=== PATIENT | female | born 1940 | race Caucasian/White ===

== ENCOUNTER 2019-05-23 14:42 | Emergency (ER) | payer MEDICARE ==
[~2019-05-23] VITALS: Ht 144.8 cm; Wt 40.8 kg
--- OUTSIDE RECORDS SUMMARY | 2019-05-23 14:45 | XMS REPORT | Clinical Summary ---
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 Active cholecalciferol, vitamin Take 2,000 0 D3, (VITAMIN D3) 2,000 Units by unit capsule capsule mouth daily as needed. Active cyanocobalamin (VITAMIN Take 500 mcg 0 B-12) 500 MCG tablet by mouth daily. Active Problems Problem Noted Date Anemia 05/26/2018 Age related osteoporosis 05/26/2018 Moderate protein-calorie malnutrition 02/21/2018 Hip fracture 02/17/2018 Closed displaced articular fracture of head of right femur 02/17/2018 Closed fracture of neck of right femur 02/17/2018 Overview: Added automatically from request for surgery [id number] Encounters Care Team Description Date Type Specialty Mounika Simeon MD 05/11/2019 Telephone Internal Medicine Justus Quiroga MD Age related osteoporosis, unspecified pathological fracture presence (Primary Dx); Anemia, unspecified type 05/04/2019 Office Visit Oncology Mounika Simeon MD Encounter for routine adult health examination with abnormal findings (Primary Dx); Parkinson disease (HCC); Anemia, unspecified type; At high risk for falls; Hypoglycemia; Dysuria; Bone disorder; 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; Other depression; Immunization refused 05/03/2019 Office Visit Internal Medicine Essie Ron 05/03/2019 Patient Quality Outreach Kristen Javier MA 06/25/2018 Telephone Internal Medicine Kristen Javier MA 06/19/2018 Telephone Internal Medicine Justus Quiroga MD Closed fracture of right hip with routine healing, subsequent encounter (Primary Dx); Anemia, unspecified type; Age related osteoporosis, unspecified pathological fracture presence 05/26/2018 Office Visit Oncology Aston Lai RN Anemia, unspecified type (Primary Dx) 05/26/2018 Orders Only Oncology after 05/22/2018 Family History Medical History Relation Name Comments Throat cancer Father Brain cancer Mother Osteoarthritis Mother Aneurysm Sister Arthritis Sister Osteoporosis Sister Relation Name Status Comments Father suicide Mother Sister (Age 65) Sister Alive multiple problems Social History Date Tobacco Use Types Packs/Day Years Used Never Smoker Smokeless Tobacco: Never Used Alcohol Use Drinks/Week oz/Week Comments No Sex Assigned at Date Recorded Not on file Industry Job Start Date Occupation Not on file Not on file Not on file Travel End Travel History Travel Start No recent travel history available. Last Filed Vital Signs Time Taken Vital Sign Reading 05/04/2019 1:32 PM CDT Blood Pressure 126/56 05/04/2019 1:32 PM CDT Pulse 91 05/04/2019 1:32 PM CDT Temperature 36 C (96.8 F) 05/03/2019 2:09 PM CDT Respiratory Rate 16 05/03/2019 2:09 PM CDT Oxygen Saturation 99% - Inhaled Oxygen - Concentration 05/04/2019 1:32 PM CDT Weight 41.7 kg (92 lb) 05/04/2019 1:32 PM CDT Height 144.8 cm (4' 9") 05/04/2019 1:32 PM CDT Body Mass Index 19.91 Plan of Treatment Care Team Description Date [place] [address] [facility] [address] [place] [address] [phone] 05/02/2020 Office Visit Oncology Health Maintenance Due Date Last Done Comments SHINGLES VACCINES (#1) 1990 65+ PNEUMOCOCCAL VACCINE 2005 (1 of 2 - PCV13) INFLUENZA VACCINE 07/01/2019 Implants Device Identifier Shelf Expiration Date Model / Serial / Lot Implanted Type Area Manufactur er 09/29/2025 [id number] / / [id number] Component Modlr Neck Neut Ti Shrt Hip Joint Right: Hip MICROPORT Profemur - [id number] Implants Implanted: Qty: 1 on 02/20/2018 by John Sarabia Jr., MD 07/22/2025 [id number] / / [id number] Head Fml Mtl Co-Cr 28mm -3.5mm Hip Joint Lower: Hip MICROPORT Lineage - [id number] Implants Implanted: Qty: 1 on 02/20/2018 by John Sarabia Jr., MD 02/03/[id number] / / [id number] Schanz Screw Self Drill 5mm St - IPM Right: Hip MICR[employer]ORT [id number] IMPLANT ORTHOPEDIC Implanted: Qty: 1 on 02/20/2018 by DEVICES John Smalls Jr., MD 05/14/2024 [id number] / / [id number] Gladiator Bipolar Shell 42mm Od X IPM Right: Hip MICROPORT 28mm Id - [id number] IMPLANT ORTHOPEDIC Implanted: Qty: 1 on 02/20/2018 by DEVICES John Smalls Jr., MD 02/03/[id number] / / [id number] Schanz Screw Self Drill 5mm St - IPM Right: Hip MICROPORT [id number] IMPLANT ORTHOPEDIC Implanted: Qty: 1 on 02/20/2018 by DEVICES John Smalls Jr., MD 02/07/2025 [id number] / / [id number] Profemur Renaissancestem Reduced Sz IPM Right: Hip MICROPORT 10 - [id number] IMPLANT ORTHOPEDIC Implanted: Qty: 1 on 02/20/2018 by John Lantigua Jr., MD 09/10/[id number] / / [id number] Pin Steinmenn Strl - [id number] Temporary Right: Hip MICROPORT Implanted: Qty: 1 on 02/20/2018 by Fixation John Sarabia Jr., MD Pin or Wire Procedures Comments Procedure Name Priority Date/Time Associated Diagnosis URINALYSIS, AUTOMATED Routine 05/12/2019 Dysuria WITH MICROSCOPY 2:13 PM CDT URINE CULTURE Routine 05/12/2019 Dysuria 2:13 PM CDT INSULIN, RANDOM Routine 05/04/2019 8:22 AM CDT VITAMIN B12 LEVEL Routine 05/04/2019 Other care home (current) 8:22 AM CDT drug therapy VITAMIN D 25 HYDROXY Routine 05/04/2019 Bone disorder LEVEL 8:22 AM CDT COMPREHENSIVE METABOLIC Routine 05/04/2019 Anemia, unspecified type PANEL 8:22 AM CDT CBC WITH PLATELET AND Routine 05/04/2019 Anemia, unspecified type DIFFERENTIAL 8:22 AM CDT POC GLYCOSYLATED Routine 05/03/2019 Hypoglycemia HEMOGLOBIN (HGB A1C) 3:22 PM CDT ZZESTIMATED GFR STAT 05/26/2018 10:46 AM CDT COMPREHENSIVE METABOLIC STAT 05/26/2018 Anemia, unspecified type PANEL 10:46 AM CDT HC COMPLETE BLD COUNT STAT 05/26/2018 Anemia, unspecified type W/AUTO DIFF 10:46 AM CDT after 05/22/2018 Results * Urinalysis, automated with microscopy (05/12/2019 2:13 PM CDT) Color, UA YELLOW YELLOW [facility] [place] Appearance CLEAR CLEAR [facility] [place] Specific 1.021 1.001 - 1.035 [facility] gravity, urine [facility] [place] pH, urine < OR=5.0 5.0 - 8.0 [facility] [place] Glucose, urine NEGATIVE NEGATIVE [facility] [place] Bilirubin, UA NEGATIVE NEGATIVE [facility] [place] Ketones, UA NEGATIVE NEGATIVE [facility] [place] Occult blood, NEGATIVE NEGATIVE [facility] [place] Protein, UA NEGATIVE NEGATIVE [facility] [place] Nitrite, UA NEGATIVE NEGATIVE [facility] [place] Leukocyte NEGATIVE NEGATIVE [facility] esterase, UA [facility] [place] WBC, UA 0-5 < OR=5 /HPF [facility] [place] RBC, UA NONE SEEN < OR=2 /HPF [facility] [place] Squamous NONE SEEN < OR=5 /HPF [facility] epithelial DIAGNOSTICS cells, UA [place] Bacteria, UA NONE SEEN NONE SEEN /HPF [facility]AGNOSTICS [place] Hyaline casts, NONE SEEN NONE SEEN /LPF [facility] UA [facility] [place] Specimen Urine Narrative Performed At [facility] 05/04/2019 FROM [id number] [facility] Resulting Agency Comment Performing Organization Information: Site ID: [id number] Name: [email or web address] Address: [address] [place] [phone] Director: Moraima Peguero Performing Organization Address [facility] Centercode Phone Number [facility] [place] [address] * Urine culture (05/12/2019 2:13 PM CDT) Urine culture SEE NOTE [facility] Comment: DIAGNOSTICS CULTURE, URINE, ROUTINE [place] MICRO NUMBER:[id number] TEST STATUS: FINAL SPECIMEN SOURCE: URINE SPECIMEN QUALITY:ADEQUATE RESULT: Multiple organisms present, each less than 10,000 CFU/mL. These organisms, commonly found on external and internal genitalia, are considered to be colonizers. No further testing performed. Specimen Urine Narrative Performed At [facility] 05/04/2019 FROM [id number] [facility] Resulting Agency Comment Performing Organization Information: Site ID: RGA Name: [email or web address] Address: [address] [place] [phone] Director: Moraima Peguero Performing Organization Address [facility] Phone Number [facility] [place] [address] * Insulin, random (05/04/2019 8:22 AM CDT) Insulin 4.9 2.0 - 19.6 uIU/mL [facility] Comment: DIAGNOSTICS-IRIS This insulin assay shows ING II strong cross-reactivity for some insulin analogs (lispro, aspart, and glargine) and much lower cross-reactivity with others (detemir, glulisine). Specimen Narrative Performed At PATIENT UNABLE TO VOID; ADVISED TO RETURN FOR COLLECTION. [facility] Resulting Agency Comment Performing Organization Information: Site ID: [email or web address] Name: [email or web address] Address: [address] [place] [phone] Director: Dr. Maurice Saxena Performing Organization Address [facility] Centercode Phone Number [facility] [employer] [place], [place] [id number] II * Vitamin D 25 hydroxy level (05/04/2019 8:22 AM CDT) Pathologist [facility] Vitamin D, 26 (L) 30 - 100 ng/mL [facility] 25-hydroxy Comment: DIAGNOSTICS Vitamin D [place] Status 25-OH Vitamin D: Deficiency: <20 ng/mL Insufficiency: 20 - 29 ng/mL Optimal: > or=30 ng/mL For 25-OH Vitamin D testing on patients on D2-supplementation and patients for whom quantitation of D2 and D3 fractions is required, the QuestAssureD(TM) 25-OH VIT D, (D2,D3), LC/MS/MS is recommended: order code 67018 (patients >2yrs). For more information on this test, go to: http://education.365net/faq/LTJ763 (This link is being provided for informational/educational purposes only.) Specimen Blood Narrative Performed At PATIENT UNABLE TO VOID; ADVISED TO RETURN FOR COLLECTION. [facility] Resulting Agency Comment Performing Organization Information: Site ID: RGA Name: [email or web address] Address: [address] [place] [phone] Director: Moraima Peguero Performing Organization Address City/State/Zipcode Phone Number [employer] [address] [address] * CBC with platelet and differential (05/04/2019 8:22 AM CDT) Only the most recent of 2 results within the time period is included. [facility] WBC 4.3 3.8 - 10.8 [facility] Thousand/uL [employer] [place] RBC 3.66 (L) 3.80 - 5.10 [facility] Million/uL [employer] [place] HGB 11.2 (L) 11.7 - 15.5 g/dL [employer] [facility] HCT 33.6 (L) 35.0 - 45.0 % [employer] [place] MCV 91.8 80.0 - 100.0 fL [employer] [facility] MCH 30.6 27.0 - 33.0 pg [employer] [place] MCHC 33.3 32.0 - 36.0 g/dL [facility] RDW 13.5 11.0 - 15.0 % [facility] Platelet count 212 140 - 400 [facility] Thousand/uL [facility] MPV 11.5 7.5 - 12.5 fL [employer] [facility] Neutrophils, 2,468 1,500 - 7,800 [facility] absolute cells/uL [facility] Lymphocytes, 1,324 850 - 3,900 cells/uL [facility] absolute [facility]ICS [place] Monocytes, 409 200 - 950 cells/uL [facility] absolute [facility] [place] Eosinophils, 69 15 - 500 cells/uL [facility] absolute [facility] [place] Basophils, 30 0 - 200 cells/uL [facility] absolute [facility] [place] Neutrophils 57.4 % [facility] Lymphocytes 30.8 % [employer] [facility] Monocytes 9.5 % [facility] Eosinophils 1.6 % [facility] Basophils + RC 0.7 % [employer] [facility] Specimen Blood Narrative Performed At PATIENT UNABLE TO VOID; ADVISED TO RETURN FOR COLLECTION. [facility] Resulting Agency Comment Performing Organization Information: Site ID: Deniz Name: [employer] [facility] Address: [address] [place] [phone] Director: Moraima Peguero Performing Organization Address City/State/[facility] Centercode Phone Number [facility] [place] [address] * Vitamin B12 level (05/04/2019 8:22 AM CDT) Pathologist [facility] Vitamin B12 >2000 (H) 200 - 1100 pg/mL [facility] Specimen Blood Narrative Performed At PATIENT UNABLE TO VOID; ADVISED TO RETURN FOR COLLECTION. [facility] Resulting Agency Comment Performing Organization Information: Site ID: Deniz Name: [employer] [facility] Address: [address] [place] [phone] Director: Moraima Peguero Performing Organization Address [facility] Centercode Phone Number [facility] [place] [place] [address] * Comprehensive metabolic panel (05/04/2019 8:22 AM CDT) Only the most recent of 2 results within the time period is included. Glucose 85 65 - 99 mg/dL [facility] Comment: DIAGNOSTICS Fasting [place] reference interval BUN, whole 24 7 - 25 mg/dL [facility] blood [facility] Creatinine 0.67 0.60 - 0.93 mg/dL [facility] Comment: DIAGNOSTICS For patients >49 years of age, [place] the reference limit for Creatinine is approximately 13% higher for people identified as -Ugandan. EGFR Non-Afr. 84 > OR=60 [facility] [place] mL/min/1.73m2 [facility] EGFR 98 > OR=[address] [facility] Ugandan mL/min/1.73m2 [facility] [place] BUN/creatinine NOT APPLICABLE 6 - 22 (calc) [facility] ratio [facility] [place] Sodium 139 135 - 146 mmol/L [facility] [place] Potassium 4.3 3.5 - 5.3 mmol/L [facility] [place] Chloride 103 98 - 110 mmol/L [facility] [place] CO2 29 20 - 32 mmol/L [facility] [place] Calcium 9.2 8.6 - 10.4 mg/dL [facility] [place] Protein 6.6 6.1 - 8.1 g/dL [facility] Albumin, S 4.1 3.6 - 5.1 g/dL [facility] [place] Globulin, total 2.5 1.9 - 3.7 g/dL [facility] (calc) [facility] Albumin/globuli 1.6 1.0 - 2.5 (calc) [facility] n ratio [facility] Total bilirubin 0.5 0.2 - 1.2 mg/dL [facility] [place] Alkaline 62 33 - 130 U/L [employer] phosphatase [facility] AST 15 10 - 35 U/L [facility] [place] ALT 10 6 - 29 U/L [employer] [place] Specimen Blood Narrative Performed At PATIENT UNABLE TO VOID; ADVISED TO RETURN FOR COLLECTION. [employer] Resulting Agency Comment Performing Organization Information: Site ID: RGA Name: [email or web address] Address: [address] [place] [phone] Director: Moraima Peguero Performing Organization Address City/State/Zipcode Phone Number [facility] [address] [place] [address] * POC glycosylated hemoglobin (Hb A1C) (05/03/2019 3:22 PM CDT) Pathologist [facility] POC Hemoglobin 5.4 % A1C Specimen Blood * Estimated GFR (05/26/2018 10:46 AM CDT) GFR Non Af Amer 81 mL/min/1.73 m2 [facility] DEPARTMENT OF PATHOLOGY AND GENOMIC MEDICINE GFR Af Amer >90 mL/min/1.73 m2 [facility] Comment: DEPARTMENT OF Chronic kidney disease: <60 PATHOLOGY AND mL/min/1.73m2 GENOMIC Kidney failure: <15 MEDICINE mL/min/1.73m2 The estimated GFR is calculated from the IDMS-traceable Modification of Diet in Renal Disease Equation. The accuracy of the calculation is poor when the creatinine is normal. Calculated values >90 mL/min/1.73m2 are not reported. This equation has not been validated in children (<18 years), women, the elderly (>70 years), or ethnic groups other than Caucasians and Americans. Specimen Plasma specimen Performing Organization Address City/State/Zipcode Phone Number [facility] [id number] [place] [address] [place] [address] PATHOLOGY AND GENOMIC MEDICINE after 05/22/2018 Insurance Type Payer Benefit Subscriber ID Effective Phone Address Plan / Dates Group Medicare MEDICARE MEDICARE xxxxxxxxxx 2005- JUAN, PART A AND Present [place] B Commercial AARP AAR xxxxxxxxxxx [id number] SUPPLEMENT resent Advance Directives Patient has advance care planning documents, and code status on file. For more i nformation, please contact: Juan Laguerre [address] [place] [address] Date Inactivated Comments Code Status Date Activated 02/24/2018 11:25 PM Full Code 02/17/2018 9:04 PM Code Status decision reached by: Patient
--- OUTSIDE RECORDS SUMMARY | 2019-05-23 14:46 | XMS REPORT | Continuity of Care Document ---
Author Author Yessi fito [facility] Interface Address Unknown Phone Unavailable Problems Problem Status Onset Date Classification Date Reported Comments Source Medications Medication Details Route Status Patient Instructions Ordering Provider Order Date Source Allergies, Adverse Reactions, Alerts Substance Category Reaction Severity Reaction type Status Date Reported Comments Source Immunizations Immunization Date Given Site Status Last Updated Comments Source Results Order Name Results Value Reference Range Date Interpretation Comments Source Brain wo contrast CT Brain wo contrast CT Exam: CT scan of the brain without contrast Reason for Exam: I62. Other and unspecified nontraumatic intracranial hemorrhage - I62. Other and unspecified nontraumatic intracranial hemorrhage Comparison Exam: None Technique: Multiple axial images were obtained of the brain. 5 mm slices were acquired without injection of intravenous contrast. Reformatted sagittal and coronal images were obtained for additional diagnostic information. Total exam CRP=0199 mGy-cm. This exam was performed according to our departmental dose- optimization program, which includes automated exposure control, adjustment of the MA and/or KV according to patient size and/or use of iterative reconstruction technique. Discussion: No abnormal fluid collections, space-occupying lesions, hydrocephalus, or midline shift. No evidence seen for acute cortical-based ischemic infarct or intra-axial/extra-axial hematoma. Age related involutional changes are seen, associated with compensatory hypertrophy of the ventricles. Mild periventricular white matter ischemic changes are seen. No skull fractures identified. The orbits are unremarkable. The visualized portions of the paranasal sinuses are clear. Impression: 1. No acute intracranial abnormalities appreciated. No skull fractures identified. 07/15/2017 - - Read by: Jose Frausto MD Dictated Date/time: 07/15/17 12:28 Electronically Signed by: Jose Frausto MD 07/15/17 12:32 FINAL [facility]PORT [facility] Vital Signs Vital Sign Value Date Comments Source Encounters Location Location Details Encounter Type Encounter Number Reason For Visit Attending Provider ADM Date DC Date Status Source [facility] Services [id number] Carol Friday07/15/2017 07/16/2017 YANNI Amaro Procedures Procedure Code Date Perfomer Comments Source
--- OUTSIDE RECORDS SUMMARY | 2019-05-23 14:46 | XMS REPORT | Summary of Care ---
Author Author [facility] [place] Organization [facility] [place] Address Unknown Phone Unavailable Encounter HQ Encntr_[id number](FIN) [id number] Date(s): 07/15/17 - 07/15/17 [facility] [place] [address] [place] [address]- [phone] Discharge Disposition: Home or Self Care Attending Physician: FridayCarol MD Vital Signs No data available for this section Problem List No data available for this section Allergies, Adverse Reactions, Alerts No data available for this section Medications No data available for this section Results No data available for this section Immunizations No data available for this section Procedures No data available for this section Social History No data available for this section Assessment and Plan No data available for this section
[2019-05-23] MEDS ORDERED: SODIUM CHLORIDE 0.9% 500ML 500 ML IV STA (15:59)
[2019-05-23] MEDS ORDERED: ONDANSETRON HCL INJ 2MG/ML 2ML 2 MG/ML VIAL IV ONE (16:30)
[2019-05-23] MEDS ORDERED: FAMOTIDINE 20 MG/2 ML VIAL IV ONE (16:30)
--- NOTE | 2019-05-23 16:44 | Diagnostic Imaging Report ---
EXAMINATION: CT of the abdomen and pelvis without contrast. TECHNIQUE: Spiral CT images of the abdomen and pelvis were performed from the lung bases to the lesser trochanters. No intravenous contrast was given due to history of iodine allergy. Coronal and sagittal reformatted images were obtained. COMPARISON: None. CLINICAL HISTORY:Stomach noises, loss of appetite DISCUSSION: ABSENCE OF INTRAVENOUS CONTRAST DECREASES SENSITIVITY FOR DETECTION OF FOCAL LESIONS AND VASCULAR PATHOLOGY. ABDOMEN/PELVIS: LOWER THORAX: Linear subsegmental atelectasis versus scarring in the right lower lobe and anterior left lower lobe. HEPATOBILIARY: No focal hepatic lesions. No intra or extrahepatic biliary ductal dilation. GALLBLADDER: No radio-opaque stones or sludge. No wall thickening. SPLEEN: No splenomegaly. PANCREAS: No focal masses or ductal dilatation. ADRENALS: No adrenal nodules. KIDNEYS/URETERS: No hydronephrosis, stones, or contour abnormalities. PELVIC ORGANS/BLADDER: Evaluation of the pelvis is limited by beam hardening artifact from right hip prosthesis. Visualized bladder is unremarkable. PERITONEUM/RETROPERITONEUM: No free air or fluid. LYMPH NODES: No intra-abdominal,retroperitoneal, pelvic or inguinal lymphadenopathy. VESSELS: Atherosclerotic calcification of the abdominal aorta GI TRACT: . No bowel dilation or evidence of obstruction. Scattered diverticula in the sigmoid colon, without diverticulitis. Moderate retained stool in colon. No pericolonic inflammatory changes. Stomach is decompressed but grossly unremarkable. BONES AND SOFT TISSUES: No aggressive lytic lesions. Mild multilevel degenerative disc changes in the lumbosacral spine. Generalized osteopenia. Right total hip replacement, in satisfactory alignment. Facet hypertrophy L5-S1. Soft tissues are grossly unremarkable. IMPRESSION: 1. No acute abdominopelvic abnormalities in this noncontrast exam. 2. Sigmoid diverticulosis, without diverticulitis. Signed by: Dr. Clayton Blake M.D. on 05/23/2019 4:41 PM
[2019-05-23 17:12] VITALS: BP 160/80
== END 2019-05-23 17:12 | disposition home or self-care (01) ==
LOC: FSED 14:42
DX: R10.33 Periumbilical pain (principal); R10.84 Generalized abdominal pain; R11.0 Nausea; K59.00 Constipation, unspecified; G20 Parkinson's disease
CPT/HCPCS: 74176; 99283; J2405; J7040